=== PATIENT | female | born 1950 | race Caucasian/White ===

== ENCOUNTER 2020-07-31 08:54 | Day surgery (SDC) | payer MEDICARE, BC ==
[2020-07-31] MEDS ORDERED: Sodium Chloride 0.9% 10 ML Syringe FLUSH PRN (09:00)
[2020-07-31] MEDS: Lactated Ringers 1,000 ML IV SCH (09:21)
[2020-07-31] MEDS ORDERED: Propofol 200 MG/20 ML SDV ONE ×2 (10:19→10:57)
--- NOTE | 2020-07-31 10:51 | PCM.PN ---
- General Info Date of Service: 07/31/20 - Review of Systems Systems Review Comment:: 70 y/o female with history of colon polyps here for follow up colonoscopy. She is stable to proceed. I have discussed the proposed colonoscopy with the patient. Risks such as but not limited to bleeding and GI injury discussed and she agrees to proceed. - Patient Data Vitals - Most Recent: Last Vital Signs Temp 97.7 F 07/31/20 08:59 Pulse 101 H 07/31/20 08:59 Resp 20 07/31/20 08:59 BP 178/95 H 07/31/20 08:59 Pulse Ox 96 07/31/20 08:59 Weight - Most Recent: 78.471 kg Med Orders - Current: Current Medications Lactated Ringer's (Ringers, Lactated) 1,000 mls @ 50 mls/hr IV ASDIRECTED GRACY Last Admin: 07/31/20 09:21 Dose: 50 mls/hr Documented by: Sodium Chloride (Sodium Chloride 0.9% 10 Ml Syringe) 10 ml FLUSH Q8HR PRN PRN Reason: keep vein open Discontinued Medications Propofol (Propofol 200 Mg/20 Ml Sdv) Confirm Administered Dose 400 mg .ROUTE .STK-MED ONE Stop: 07/31/20 10:20 Sepsis Event Note - Focused Exam Vital Signs: Vital Signs Temp Pulse Resp BP Pulse Ox 07/31/20 08:59 97.7 F 101 H 20 178/95 H 96 - Problem List Review Problem List Initiated/Reviewed/Updated: Yes - My Orders Last 24 Hours: My Active Orders 07/30/20 13:59 Resuscitation Status Routine 07/31/20 Breakfast Nothing Per Oral Diet [DIET] 07/31/20 09:00 Peripheral IV Care [RC] . DIRECTED Lactated Ringers [Ringers, Lactated] 1,000 ml IV ASDIRECTED Sodium Chloride 0.9% [Saline Flush] 10 ml FLUSH Q8HR PRN Peripheral IV Insertion Adult [OM.PC] Routine 07/31/20 10:30 Verify Patient Consent Obtain [RC] ASDIRECTED - Assessment Assessment:: History of colon polyps - Plan Plan:: Colonoscopy
--- NOTE | 2020-07-31 11:26 | PCM.OPNOTE ---
- General Post-Op/Procedure Note Date of Surgery/Procedure: 07/31/20 Operative Procedure(s): Colonoscopy with Polypectomy Findings: Extensive Sigmoid colon Diverticulosis 2 small polyps in right side of colon Pre Op Diagnosis: History of colon polyps Post-Op Diagnosis: Colon Polyps. Sigmoid Diverticulosis Anesthesia Technique: MAC Primary Surgeon: Edgar Pond Pathology: Colon Polyp EBL in mLs: 0 Complications: None Condition: Good
[2020-07-31 11:35] VITALS: BP 113/54; PULSE 70
--- NOTE | 2020-07-31 19:06 | OR ---
DATE OF SURGERY: 07/31/2020 SURGEON: Edgar Pond MD PREOPERATIVE DIAGNOSIS: History of colon polyps. POSTOPERATIVE DIAGNOSIS: Colon polyps, sigmoid diverticulosis. OPERATION PERFORMED: Colonoscopy with polypectomy. INDICATIONS FOR SURGERY: This 70-year-old female has a known history of colon polyps. She comes today for surveillance colonoscopy. FINDINGS: Two small polyps were noted on today's exam. There was a 5 mm sessile polyp at the hepatic flexure and a 3 mm sessile polyp in the ascending colon. The patient also has extensive diverticulosis of the sigmoid region, but this does not appear to be acutely inflamed or otherwise complicated. Colon otherwise appears normal. DESCRIPTION OF PROCEDURE: The patient was taken to the operating room. She was given intravenous sedation and with her in the left lateral decubitus position, digital rectal exam was performed showing no rectal masses. The Olympus colonoscope was inserted into the rectum. Retroflexed examination of the rectal canal is performed and the scope was then carefully advanced under direct visualization to the level of the hepatic flexure where the larger of the 2 described polyps were identified. This was removed with a cautery snare and retrieved. The scope was then advanced to the cecum. The cecal acquisition is confirmed by noting the normal internal cecal anatomy including the appendiceal orifice and the ileocecal valve. The light was also noted to transilluminate the abdominal wall in the right lower quadrant. After examining the cecum, the scope was slowly withdrawn and in the ascending colon, the other very small polyp was identified. This was destroyed with the use of cautery, although there was no specimen retrieved from this location. Examination is then continued sequentially re-examining the colonic segments until the entire colon and rectum had been fully examined. The scope was removed and the patient was taken from the operating room in satisfactory condition. ESTIMATED BLOOD LOSS: Zero. COMPLICATIONS: None. PROGNOSIS: Good. /[id number]/MODL
== END 2020-07-31 12:10 | disposition home or self-care (01) ==
LOC: KA.SDS 08:54
PROVIDERS: ATTEND Surgery
DX: Z12.11 Encounter for screening for malignant neoplasm of colon (principal); D12.3 Benign neoplasm of transverse colon; K57.30 Diverticulosis of large intestine without perforation or abscess without bleeding; I10 Essential (primary) hypertension; E03.9 Hypothyroidism, unspecified; E78.5 Hyperlipidemia, unspecified; Z86.010 Personal history of colon polyps; Z88.0 Allergy status to penicillin; Z79.890 Hormone replacement therapy; Z79.899 Other long term (current) drug therapy; Z91.018 Allergy to other foods
CPT/HCPCS: 00812; J2704; J7120

== ENCOUNTER 2023-08-11 10:19 | Day surgery (SDC) | payer MEDICARE ==
[2023-08-11] MEDS ORDERED: Sodium Chloride 0.9% 10 ML Syringe FLUSH PRN (10:30)
[2023-08-11] MEDS: Lactated Ringers 1,000 ML IV SCH (11:02)
[2023-08-11] MEDS ORDERED: Propofol 200 MG/20 ML SDV ONE (11:55)
[2023-08-11] MEDS ORDERED: Midazolam 1 MG/ML 2 ML SDV ONE (11:55)
[2023-08-11 13:38] VITALS: BP 132/59; PULSE 76
== END 2023-08-11 14:30 | disposition home or self-care (01) ==
LOC: KA.SDS 10:19
PROVIDERS: ATTEND Surgery
DX: Z12.11 Encounter for screening for malignant neoplasm of colon (principal); D12.3 Benign neoplasm of transverse colon; K57.30 Diverticulosis of large intestine without perforation or abscess without bleeding; Z86.010 Personal history of colon polyps; I10 Essential (primary) hypertension; E78.5 Hyperlipidemia, unspecified; E03.9 Hypothyroidism, unspecified; Z79.890 Hormone replacement therapy; Z79.899 Other long term (current) drug therapy; Z88.0 Allergy status to penicillin
CPT/HCPCS: 00811; J2250; J2704; J3490; J7120